=== PATIENT | female | born 1955 | race American Indian/Alaskan Native ===

== ENCOUNTER 2016-09-26 14:45 | Emergency (ER) | payer BC ==
[~2016-09-26] VITALS: Ht 157.5 cm; Wt 77.0 kg
[~2016-09-26 14:45] MED LIST: ASPI-664 PO; ATOR20TA65 PO; CARV6.2579 PO; FURO20TA3 PO; GLIP-95 PO; KENC1; LANT3I SC; LISI-525 PO; LORA10TA3 PO; METF850T PO
[2016-09-26 14:50] VITALS: Ht 157.5 cm; Wt 77.0 kg
[2016-09-26] MEDS ORDERED: ASPIRIN 325 MG TAB PO STA (15:23)
[2016-09-26] MEDS ORDERED: NITROGLYCERIN 2% 1 GM OINT PKT TD STA (15:23)
--- NOTE | 2016-09-26 15:25 | ERA ---
ER Documentation Chief Complaint Date/Time DATE: 09/26/16 TIME: 15:23 Chief Complaint Complians of chest pain Hx of dialysis HPI 60-year-old female history of end-stage renal disease on dialysis who presents with 3 days of chest pain. Intermittent chest pain that is pressure-like and substernal, not present currently. No pleuritic pain, and last dialysis yesterday. No fevers or chills or calf swelling. ROS All systems reviewed and are negative except as per history of present illness. Medications Home Meds Reported Medications Zolpidem Tartrate* (Ambien*) 5 Mg Tablet, 5 MG PO QHS Y for INSOMNIA, #30 TAB 09/26/16 Apixaban* (Eliquis*) 2.5 Mg Tablet, 2.5 MG PO BID, TAB 09/26/16 Clonidine Hcl* (Clonidine Hcl*) 0.2 Mg Tablet, 0.2 MG PO Q8, TAB 09/26/16 Furosemide* (Lasix*) 20 Mg Tablet, 20 MG PO DAILY, TAB 09/26/16 Calcium Acetate* (Phoslo*) 667 Mg Tablet, 2001 MG PO WITH MEALS, TAB 09/26/16 Multivit/Ca Carb/B Cmplx/Fa* (Kelly-Naun*) 1 Tab Tab, 1 TAB PO DAILY, TAB 09/26/16 Glimepiride* (Glimepiride*) 4 Mg Tablet, 4 MG PO WITH BREAKFAST, TAB 09/26/16 Sitagliptin* (Januvia*) 100 Mg Tablet, 100 MG PO DAILY, #30 TAB 09/26/16 Carvedilol* (Coreg*) 12.5 Mg Tablet, 12.5 MG PO BID, #60 TAB 09/26/16 Atorvastatin Calcium (Atorvastatin Calcium) 20 Mg Tablet, 20 MG PO DAILY 04/21/15 Discontinued Reported Medications Metformin Hcl* (Metformin Hcl*) 850 Mg Tablet, 850 MG PO DAILY 04/21/15 Carvedilol* (Carvedilol*) 6.25 Mg Tablet, 6.25 MG PO DAILY 04/21/15 Triamcinolone Acetonide* (Kenalog*) 0.1%-15GM Cr 04/21/15 Glipizide* (Glipizide*) 10 Mg Tablet, 10 MG PO DAILY, TAB 03/01/15 Loratadine* (Loratadine*) 10 Mg Tablet, 10 MG PO DAILY, TAB 03/01/15 Discontinued Scripts Lisinopril* (Zestril*) 20 Mg Tab, 20 MG PO DAILY for 30 Days, 2 Refills Prov:HARLEY GAYTAN 04/22/15 Furosemide* (Furosemide*) 20 Mg Tablet, 20 MG PO DAILY for 28 Days, TAB Prov:THELMA STEVENSON MD 03/03/15 Insulin Glargine* (Lantus*) 100 Unit/Ml Soln, 18 UNIT SC QHS for 28 Days, BOTTLE Prov:THELMA STEVENSON MD 03/03/15 Aspirin* (Aspirin* EC) 81 Mg Tabec, 81 MG PO DAILY for 28 Days, BOT Prov:THELMA STEVENSON MD 03/03/15 Allergies Allergies: Coded Allergies: No Known Allergy (Unverified , 09/26/16) PMhx/Soc History of Surgery: Yes (right ovarian cyst) Anesthesia Reaction: No Hx Neurological Disorder: No Hx Respiratory Disorders: Yes (asthma) Hx Cardiac Disorders: Yes (htn, chf, high cholesterol) Hx Psychiatric Problems: No Hx Miscellaneous Medical Probl: Yes (iddm, legally blind) Hx Alcohol Use: No Hx Substance Use: No Hx Tobacco Use: No FmHx Family History: No diabetes Physical Exam Vitals Vital Signs Date Time Temp Pulse Resp B/P Pulse Ox O2 Delivery O2 Flow Rate FiO2 09/26/16 18:03 57 20 189/88 98 Room Air 09/26/16 15:39 61 20 212/87 97 Room Air 09/26/16 14:50 98.0 62 20 227/88 92 Physical Exam General: Well developed, well nourished, no acute distress Head: Normocephalic, atraumatic. Eyes: Blind ENT: Moist mucous membranes Neck: Supple, no lymphadenopathy Respiratory: Lungs clear bilaterally, no distress Cardiovascular: RRR, no murmurs, rubs, or gallops Abdominal: Soft, non-tender, non-distended, no peritoneal signs : Deferred MSK: No edema, no unilateral swelling, 5/5 strength Neurologic: Alert and oriented, moving all extremities, normal speech, no focal weakness, no cerebellar signs Skin: No rash, right chest tunneled Vas-Cath in good position Psych: Normal mood Result Diagram: 09/26/16 1530 09/26/16 1530 Results 24 hrs Laboratory Tests Test 09/26/16 15:30 White Blood Count 4.410^3/ul Red Blood Count 3.7110^6/ul Hemoglobin 11.2g/dl Hematocrit 34.0% Mean Corpuscular Volume 91.6fl Mean Corpuscular Hemoglobin 30.2pg Mean Corpuscular Hemoglobin Concent 32.9g/dl Red Cell Distribution Width 12.7% Platelet Count 18785^3/UL Mean Platelet Volume 11.5fl Neutrophils % 68.2% Lymphocytes % 14.5% Monocytes % 11.8% Eosinophils % 4.5% Basophils % 0.5% Nucleated Red Blood Cells % 0.0/100WBC Neutrophils # 3.010^3/ul Lymphocytes # 0.610^3/ul Monocytes # 0.510^3/ul Eosinophils # 0.210^3/ul Basophils # 0.010^3/ul Nucleated Red Blood Cells # 0.010^3/ul Prothrombin Time 13.6Sec Prothrombin Time Ratio 1.1 INR International Normalized Ratio 1.04 Activated Partial Thromboplast Time 36.3Sec Sodium Level 129mmol/L Potassium Level 5.1mmol/L Chloride Level 93mmol/L Carbon Dioxide Level 27mmol/L Anion Gap 14 Blood Urea Nitrogen 41mg/dl Creatinine 4.08mg/dl Glucose Level 340mg/dl Calcium Level 9.5mg/dl Troponin I 0.053ng/ml Current Medications Medications (Trade) Dose Ordered Sig/Tim Route PRN Reason Start Time Stop Time Status Last Admin Dose Admin Aspirin (Aspirin) 325 mg ONCE STAT PO 09/26/16 15:23 09/26/16 15:24 DC 09/26/16 15:32 Nitroglycerin (Nitroglycerin 2% Oint) 1 inch ONCE STAT TD 09/26/16 15:23 09/26/16 15:24 DC 09/26/16 15:32 Hydralazine HCl (Apresoline) 10 mg ONCE ONCE IV 09/26/16 16:00 09/26/16 16:01 DC 09/26/16 15:45 Ondansetron HCl (Zofran Inj) 4 mg ER BRIDGE PRN IV NAUSEA AND/OR VOMITING 09/26/16 19:30 09/27/16 19:29 Acetaminophen (Tylenol Tab) 650 mg ER BRIDGE PRN PO MILD PAIN/FEVER 09/26/16 19:30 09/27/16 19:29 Procedures/MDM EKG, MONITORS, & DIAGNOSTIC IMAGING: EKG: I reviewed and interpreted a 12-lead EKG. Rhythm: Normal sinus rhythm Ectopy: None Intervals: No abnormalities ST segments: No elevations or depressions T waves: No contiguous inversions Repeat EKG: EKG: I reviewed and interpreted a 12-lead EKG. Rhythm: Normal sinus rhythm Ectopy: None Intervals: No abnormalities ST segments: No elevations or depressions T waves: No contiguous inversions Chest x-ray: I reviewed and interpreted a 1 view of the chest Mediastinum: No enlargement Cardiac silhouette: No cardiomegaly Airspace: Clear lung dawkins bilaterally without evidence of pneumothorax Bones: No evidence of fracture LAB INTERPRETATION: Hyperglycemia without DKA, negative troponin MEDICAL DECISION MAKING: The patient's history, physical exam and clinical presentation is concerning for possible cardiogenic etiology and acute coronary syndrome. Based on the patient's clinical exam and history and risk factors, I have a much lower clinical concern for pulmonary embolism, acute aortic dissection, pneumothorax, pneumonia, cardiac tamponade HEART Score: 5 MACE Rate: 16.6% Shared Decision Making: We had a conversation regarding risk stratification, MACE rate, and the risks, benefits, alternatives of disposition planning options. Disposition planning: Given high risk profile inpatient hospitalization recommended. Patient agreeable. ER COURSE: Patient presents with chest pain. Patient was given aspirin and nitroglycerin. Patient still with hypertension, hydralazine provided with appropriate reduction and mean arterial pressure. I kept the patient and/or family informed of laboratory and diagnostic imaging results throughout the emergency room course. DISPOSITION PLAN: Telemetry admission for management of chest pain to rule out acute coronary syndrome CONSULTATION: Accepting care team and consultations: I discussed the current laboratory data, diagnostic imaging and emergency care provided. Admitting team: Dr. Infante Admitting team indication: Insurance directed, [place] Departure Diagnosis: Primary Impression: Chest pain Qualified Code: R07.9 - Chest pain, unspecified type Additional Impressions: Hypertensive urgency Hyperglycemia Condition: Stable MENDEL BYRNE MD Sep 26, 2016 15:25
[2016-09-26 15:41] LABS: ADD SCAN DIFF NO
[2016-09-26 15:42] LABS: BASOPHILS % 0.5 % (0.0-2.0); EOSINOPHILS # 0.2 10^3/ul (0.0-0.5); EOSINOPHILS % 4.5 % (0.0-7.0); HEMOGLOBIN 11.2 g/dl (12.0-16.0); LYMPHOCYTES # 0.6 10^3/ul (0.8-2.9); LYMPHOCYTES % 14.5 % (15.0-51.0); MEAN CORPUSCULAR HEMOGLOBIN 30.2 pg (29.0-33.0); MEAN CORPUSCULAR HGB CONC 32.9 g/dl (32.0-37.0); MEAN CORPUSCULAR VOLUME 91.6 fl (82.0-101.0); MEAN PLATELET VOLUME 11.5 fl (7.4-10.4); MONOCYTE # 0.5 10^3/ul (0.3-0.9); MONOCYTES % 11.8 % (0.0-11.0); NEUTROPHILS % 68.2 % (39.0-77.0); PLATELET COUNT 165 10^3/UL (140-415); RED BLOOD COUNT 3.71 10^6/ul (4.20-5.40); RED CELL DISTRIBUTION WIDTH 12.7 % (11.5-14.5); WHITE BLOOD COUNT 4.4 10^3/ul (4.8-10.8)
[2016-09-26] MEDS ORDERED: hydrALAzine 20 MG INJ IV ONE (16:00)
[2016-09-26 16:01] LABS: INR 1.04; PROTIME 13.6 Sec (12.2-14.2); PT RATIO 1.1
[2016-09-26 16:02] LABS: PARTIAL THROMBOPLASTIN TIME 36.3 Sec (25.0-35.0)
[2016-09-26 16:04] LABS: CALCIUM 9.5 mg/dl (8.4-10.2); CREATININE 4.08 mg/dl (0.44-1.00); POTASSIUM 5.1 mmol/L (3.5-5.1)
[2016-09-26 16:16] LABS: TROPONIN-I 0.053 ng/ml (0.00-0.12)
[2016-09-26] MEDS ORDERED: CALC667T2 PO (16:24)
[2016-09-26] MEDS ORDERED: NEPH PO (16:24)
[2016-09-26] MEDS ORDERED: APIX2.5T PO (16:24)
[2016-09-26] MEDS ORDERED: CARV12.598 PO (16:24)
[2016-09-26] MEDS ORDERED: ZOLP5TAB PO (16:24)
[2016-09-26] MEDS ORDERED: FURO-110 PO (16:24)
[2016-09-26] MEDS ORDERED: SITA100T8 PO (16:24)
[2016-09-26] MEDS ORDERED: GLIM4TAB PO (16:24)
[2016-09-26] MEDS ORDERED: CLON0.2T5 PO (16:24)
[2016-09-26] MEDS ORDERED: ACETAMINOPHEN 325 MG TAB PO PRN ×2 (19:30→22:00)
[2016-09-26] MEDS ORDERED: ONDANSETRON 4 MG INJ IV PRN ×2 (19:30→22:00)
[2016-09-26] MEDS ORDERED: ZOLPIDEM 5 MG TAB PO PRN (22:00)
[2016-09-26] MEDS ORDERED: morphine 2 MG INJ IV PRN (22:00)
--- NOTE | 2016-09-26 23:52 | RADRPT ---
PROCEDURE: Portable chest x-ray. CLINICAL INDICATION: Chest pain. TECHNIQUE: Portable AP view of the chest. COMPARISON: 04/22/2015. FINDINGS: A right central venous catheter terminates in the right atrium. There are mildly prominent interstit ial lung markings, not significantly changed. The cardiac silhouette is mildly enlarged. There is a trace right pleural effusion. There is no pneumothorax. IMPRESSION: 1. Mildly prominent interstitial lung markings, not significantly changed. These are nonspecific bu t could represent interstitial edema, a viral chest infection, and/or chronic lung changes. 2. Mildly enlarged cardiac silhouette. 3. Trace right pleural effusion. RPTAT: HTAR .Donta Morris MD, Date Time Electronically viewed and signed by .Donta Morris MD, on 09/26/2016 23:51 .R/
[2016-09-27 00:43] LABS: CK-MB 1.91 ng/ml (0.0-2.4); TROPONIN-I 0.053 ng/ml (0.00-0.12)
[2016-09-27 04:56] VITALS: BP 181/83; PULSE 62; RESP 16
[2016-09-27] MEDS ORDERED: CALCIUM ACETATE 667 MG CAP PO SCH (08:00)
[2016-09-27] MEDS ORDERED: ATORVASTATIN 20 MG TAB PO SCH (09:00)
[2016-09-27] MEDS ORDERED: APIXABAN 5 MG TABLET PO SCH (09:00)
[2016-09-27] MEDS ORDERED: MULTIVIT/CA CARB/B CMPLX/FA TAB PO SCH (09:00)
[2016-09-27] MEDS ORDERED: ASPIRIN 81 MG TAB PO SCH (09:00)
== END 2016-09-27 05:00 | disposition left against medical advice (07) ==
LOC: E/R 14:45
DX: R07.9 Chest pain, unspecified (principal); I16.0 Hypertensive urgency; E11.65 Type 2 diabetes mellitus with hyperglycemia; I10 Essential (primary) hypertension; J45.909 Unspecified asthma, uncomplicated; Z79.4 Long term (current) use of insulin; Z79.84 Long term (current) use of oral hypoglycemic drugs; Z79.82 Long term (current) use of aspirin
CPT/HCPCS: 36415; 71010; 80048; 82550; 82553; 84484; 85025; 85610; 85730; 93005; 96374; 99285; J0360; Z7610